=== PATIENT | female | born 1950 | race Caucasian/White ===

== ENCOUNTER 2021-11-26 08:55 | Emergency (ER) | payer MEDICAID ==
[~2021-11-26] VITALS: Ht 162.6 cm; Wt 76.0 kg
[2021-11-26] MEDS ORDERED: ACETAMINOPHEN 325MG TABLET PO ONE (10:30)
[2021-11-26] MEDS ORDERED: TOPUD MT (12:11)
[2021-11-26 12:27] VITALS: BP 127/68
== END 2021-11-26 12:29 | disposition home or self-care (01) ==
LOC: ER 08:55
DX: S00.03XA Contusion of scalp, initial encounter (principal); S49.82XA Other specified injuries of left shoulder and upper arm, initial encounter; M54.2 Cervicalgia; W11.XXXA Fall on and from ladder, initial encounter; Y93.89 Activity, other specified; Y92.018 Other place in single-family (private) house as the place of occurrence of the external cause; R90.82 White matter disease, unspecified
CPT/HCPCS: 73030; 73060; 73080; 99284